=== PATIENT | male | born 1950 | race Caucasian/White ===

== ENCOUNTER → 2022-01-29 09:05 | Outpatient (CLI) | payer MEDICARE, SELFPAY ==
[2022-01-31 07:56] LABS: PSA Free % 11.9 % (.); PSA, Total 5.9 ng/mL (0.0-4.0)
== END ==
PROVIDERS: PCP Family Medicine; Visit Provider Urology
DX: R97.20 Elevated prostate specific antigen [PSA] (principal)
CPT/HCPCS: 84153; 84154

== ENCOUNTER → 2024-01-07 14:33 | Outpatient (CLI) | payer MEDICARE, SELFPAY | PROVIDERS: PCP Family Medicine; Visit Provider Family Medicine | DX: A57 Chancroid (principal) | CPT/HCPCS: 87070; 87075; 87205 ==

== ENCOUNTER → 2024-03-22 11:10 | Outpatient (CLI) | payer MEDICARE, SELFPAY ==
--- NOTE | 2024-03-22 11:11 | DI.MRI.S_ITS ---
PROCEDURE: MR BRAIN (IAC) WWO CON INDICATIONS: hearing loss TECHNIQUE: Noncontrast sagittal T1 spin echo, axial FLAIR, axial gradient echo, axial diffusion and ADC through the brain. Axial thin-slice 3D CISS, coronal TruFISP, axial T1 spin echo with fat saturation through the internal auditory canals. After the administration of contrast, thin slice axial and coronal T1 spin echo with fat saturation through the internal auditory canals, and axial and coronal and sagittal T1 spin echo with fat saturation through the brain. COMPARISON: None. FINDINGS: Image quality: Excellent. Cerebellopontine angles: No cerebellopontine angle masses. Inner ear structures appear normally formed. No suspicious enhancement in the internal auditory canal or along the course of the 7th cranial nerve. CSF spaces: Ventricles are normal in size and shape. No extra-axial fluid collections. Basal cisterns are patent. Brain: No intracranial bleeds or mass effects. Lama-white matter interface is intact. No abnormal intracranial enhancement. Diffusion weighted images demonstrate no acute ischemic insults. Brainstem appears normal. Normal intravascular flow voids are present. Note is made of age-appropriate brain parenchymal volume loss and chronic small vessel ischemic changes. Skull and face: Calvarial marrow signal is normal. Orbits appear normal. Sinuses: There is moderate mucosal thickening within the right maxillary sinus, with [id number] mucosal thickening within the left maxillary sinus. Milder mucosal thickening can be seen elsewhere within the paranasal sinuses. No abnormal fluid is seen within the mastoid air cells. IMPRESSION: No masses or abnormal enhancement are seen within the cerebellopontine angle cisterns or within the internal auditory canals. Paranasal sinus disease is seen, which is worst within the right maxillary sinus. Dictated by: Pelon Ortiz M.D. on 03/22/2024 at 12:59 Approved by: Pelon Ortiz M.D. on 03/22/2024 at 13:01
== END ==
LOC: MRI 11:10
PROVIDERS: PCP Family Medicine; Referring Provider Otolaryngology; Visit Provider Otolaryngology
DX: H90.3 Sensorineural hearing loss, bilateral (principal); J32.8 Other chronic sinusitis
CPT/HCPCS: 70553; A9579

== ENCOUNTER → 2025-01-11 14:16 | Outpatient (CLI) | payer MEDICARE, SELFPAY ==
[2025-01-11 19:20] LABS: Prostate Specific Antigen 13.6 ng/mL (0.10-4.00)
== END ==
PROVIDERS: PCP Family Medicine; Visit Provider Urology
DX: R97.20 Elevated prostate specific antigen [PSA] (principal)
CPT/HCPCS: 84153

== ENCOUNTER → 2025-01-13 14:44 | Outpatient (CLI) | payer MEDICARE, SELFPAY ==
[2025-01-13 18:13] LABS: Appearance Urine UA SL CLOUDY; Bilirubin Urine UA NEGATIVE (NEGATIVE); Color Urine UA YELLOW; Glucose Urine UA TRACE g/dL (Negative); Ketones Urine UA NEGATIVE (NEGATIVE); Leukocyte Esterase Urine UA TRACE (NEGATIVE); Nitrite Urine UA POSITIVE (Negative); Occult Blood Urine UA TRACE-INTACT (Negative); Protein Urine UA NEGATIVE (Negative); Specific Gravity Urine UA <=1.005 (1.000-1.035); Urobilinogen Urine UA 0.2 E.U./dL (0.2); pH Urine UA 6.0 (4.5-8.0)
[2025-01-13 18:21] LABS: Culture Indicated Urine Specimen Cultured
== END ==
LOC: LAB 14:45
PROVIDERS: PCP Family Medicine; Visit Provider Urology
DX: R97.20 Elevated prostate specific antigen [PSA] (principal)
CPT/HCPCS: 81001; 87077; 87086; 87186

== ENCOUNTER → 2025-02-16 12:51 | Outpatient (CLI) | payer MEDICARE, SELFPAY ==
[2025-02-16 19:52] LABS: Prostate Specific Antigen 4.98 ng/mL (0.10-4.00)
== END ==
LOC: LAB 12:51
PROVIDERS: PCP Family Medicine; Visit Provider Urology
DX: R97.20 Elevated prostate specific antigen [PSA] (principal)
CPT/HCPCS: 84153